=== PATIENT | male | born 1940 | race Hispanic/Latino ===

== ENCOUNTER → 2017-05-04 | Outpatient (CLI) | payer OTHER ==
[~2017-05-04] MED LIST: AEC81 PO; ATOR10 PO; CARV12.511 PO; DONE5TAB26 PO; FLUT15.88 NS; FURO40TA7 PO; HUM10VIA SQ; LEVO500T2 PO; LOSARTAN 25MG PO; METF10004 PO; MULT-1192 PO; OMEP20CA10 PO
== END | disposition home or self-care (01) ==
LOC: SHCH 14:12
PROVIDERS: ATTEND Internal Medicine Cardiovascular Disease
DX: I35.0 Nonrheumatic aortic (valve) stenosis (principal)
CPT/HCPCS: 93306

== ENCOUNTER 2018-01-26 13:27 | Emergency (ER) | payer OTHER ==
[~2018-01-26 13:27] MED LIST changes: -FURO40TA7 PO; -LOSARTAN 25MG PO; +METF-446 PO; -METF10004 PO; -OMEP20CA10 PO
[2018-01-26] MEDS ORDERED: SODIUM CHLORIDE 0.9% 500ML 500 ML IV ONE (14:21)
[2018-01-26 14:26] LABS: BASOPHILS % (AUTO) 0.9 % (0.0-5.0); HEMATOCRIT 35.7 % (42-54); LYMPHOCYTES % (AUTO) 19.5 % (21.0-51.0); MEAN CORPUSCULAR HEMOGLOBIN 29.4 pg (27.0-33.0); MEAN CORPUSCULAR HGB CONC 34.3 g/dL (32.0-36.0); MEAN CORPUSCULAR VOLUME 85.9 fL (79-99); MONOCYTES % (AUTO) 5.8 % (3.0-13.0); NEUTROPHILS % (AUTO) 68.8 % (40.0-77.0); PLATELET COUNT (AUTO) 325 K/uL (130-400); RED BLOOD CELL COUNT(AUTO) 4.16 MIL/uL (4.50-6.20); RED CELL DISTRIBUTION WIDTH 14.7 % (11.0-15.5); WHITE BLOOD COUNT (AUTO) 9.5 K/uL (4.8-10.8)
[2018-01-26 14:33] LABS: APPEARANCE,URINE Cloudy (CLEAR); BILIRUBIN,URINE Negative (NEGATIVE); GLUCOSE, URINE (UA) 250 mg/dL (NEGATIVE); KETONES,URINE Negative (NEGATIVE); LEUKOCYTE ESTERASE ,URINE Moderate (NEGATIVE); NITRATE,URINE Negative (NEGATIVE); OCCULT BLOOD,URINE Large (NEGATIVE); PROTEIN,URINE POS 1+ (NEGATIVE)
[2018-01-26 14:36] LABS: COLOR,URINE Amber (YELLOW)
[2018-01-26 14:41] LABS: BACTERIA,URINE Moderate /HPF (None Seen); MUCUS,URINE Moderate LPF (None Seen); RBC,URINE TNTC /HPF (0-1); WBC,URINE 26-50 /HPF (0-1); YEAST,URINE BUDDING Moderate /HPF (None Seen)
[2018-01-26 14:42] LABS: CREATININE 0.7 mg/dL (0.5-1.5)
[2018-01-26 14:43] LABS: POTASSIUM 5.1 mmol/L (3.5-5.1)
[2018-01-26] MEDS ORDERED: LEVOFLOXACIN 750 MG/D5W 150 ML 150 ML ONE (14:46)
[2018-01-26] MEDS ORDERED: FLUCONAZOLE 100 MG TAB ONE (15:18)
== END 2018-01-26 16:47 | disposition home or self-care (01) ==
LOC: EDH 13:27
DX: N39.0 Urinary tract infection, site not specified (principal); R31.9 Hematuria, unspecified; I11.0 Hypertensive heart disease with heart failure; I50.9 Heart failure, unspecified; E78.5 Hyperlipidemia, unspecified; Z95.1 Presence of aortocoronary bypass graft; E11.9 Type 2 diabetes mellitus without complications
CPT/HCPCS: 36415; 80048; 81001; 85025; 87088; 96365; 96366; 99285; J1956; J7040

== ENCOUNTER 2019-07-27 12:44 | Emergency (ER) | payer OTHER ==
[~2019-07-27 12:44] MED LIST changes: +FLUT15.845 NS; -FLUT15.88 NS
[2019-07-27 13:49] LABS: BASOPHILS % (AUTO) 0.7 % (0.0-5.0); EOSINOPHILS % (AUTO) 4.7 % (0.0-8.0); HEMATOCRIT 39.2 % (42-54); LYMPHOCYTES % (AUTO) 15.5 % (21.0-51.0); MEAN CORPUSCULAR HEMOGLOBIN 28.1 pg (27.0-33.0); MEAN CORPUSCULAR HGB CONC 33.4 g/dL (32.0-36.0); MEAN CORPUSCULAR VOLUME 84.1 fL (79-99); NEUTROPHILS % (AUTO) 69.7 % (40.0-77.0); PLATELET COUNT (AUTO) 322 K/uL (130-400); RED BLOOD CELL COUNT(AUTO) 4.66 MIL/uL (4.50-6.20); RED CELL DISTRIBUTION WIDTH 13.9 % (11.0-15.5); WHITE BLOOD COUNT (AUTO) 10.4 K/uL (4.8-10.8)
[2019-07-27 13:55] LABS: APPEARANCE,URINE TURBID (CLEAR); BILIRUBIN,URINE NEGATIVE (NEGATIVE); COLOR,URINE YELLOW (YELLOW); GLUCOSE, URINE (UA) 100 mg/dL (NEGATIVE); KETONES,URINE NEGATIVE (NEGATIVE); LEUKOCYTE ESTERASE ,URINE LARGE (NEGATIVE); NITRATE,URINE NEGATIVE (NEGATIVE); OCCULT BLOOD,URINE LARGE (NEGATIVE); PH,URINE 5.5 (5.0-8.0); PROTEIN,URINE 100 mg/dL (NEGATIVE); UROBILINOGEN,URINE 0.2 mg/dL (0.2-1.0)
[2019-07-27 14:07] LABS: WBC,URINE TNTC /HPF (0-1)
[2019-07-27 14:08] LABS: BACTERIA,URINE Few /HPF (None Seen); SQUAMOUS EPITHELIAL CELL,UR Few /HPF (0-2); YEAST,URINE BUDDING Few /HPF (None Seen)
[2019-07-27 14:21] LABS: CREATININE 1.1 mg/dL (0.5-1.5); POTASSIUM 3.8 mmol/L (3.5-5.1)
[2019-07-27 14:28] LABS: ALBUMIN 3.4 g/dL (3.5-5.0); BILIRUBIN,TOTAL 0.5 mg/dL (0.2-1.0); TOTAL PROTEIN, SERUM 7.1 g/dL (6.0-8.3)
[2019-07-27] MEDS ORDERED: CEFTRIAXONE SODIUM 1 GM ONE (16:18)
[2019-07-27] MEDS ORDERED: SODIUM CHLORIDE 0.9% 100 ML IV ONE (16:19)
== END 2019-07-27 17:28 | disposition home or self-care (01) ==
LOC: EDH 12:44
DX: N30.01 Acute cystitis with hematuria (principal); I11.0 Hypertensive heart disease with heart failure; I50.9 Heart failure, unspecified; E11.9 Type 2 diabetes mellitus without complications; Z72.0 Tobacco use; Z79.899 Other long term (current) drug therapy
CPT/HCPCS: 36415; 71045; 80053; 81001; 83605; 85025; 87077; 87088; 87186; 96374; 99284; J0696

== ENCOUNTER 2019-09-12 06:51 | Day surgery (SDC) | payer OTHER ==
[2019-09-05 13:46] LABS: BASOPHILS % (AUTO) 0.8 % (0.0-5.0); HEMATOCRIT 40.9 % (42-54); MEAN CORPUSCULAR HEMOGLOBIN 27.5 pg (27.0-33.0); MEAN CORPUSCULAR HGB CONC 32.5 g/dL (32.0-36.0); MEAN CORPUSCULAR VOLUME 84.5 fL (79-99); MONOCYTES % (AUTO) 6.7 % (3.0-13.0); NEUTROPHILS % (AUTO) 72.1 % (40.0-77.0); PLATELET COUNT (AUTO) 355 K/uL (130-400); RED BLOOD CELL COUNT(AUTO) 4.84 MIL/uL (4.50-6.20); RED CELL DISTRIBUTION WIDTH 14.5 % (11.0-15.5); WHITE BLOOD COUNT (AUTO) 10.5 K/uL (4.8-10.8)
[2019-09-05 13:55] LABS: APPEARANCE,URINE SL CLOUDY (CLEAR); BILIRUBIN,URINE NEGATIVE (NEGATIVE); COLOR,URINE YELLOW (YELLOW); GLUCOSE, URINE (UA) 500 mg/dL (NEGATIVE); KETONES,URINE NEGATIVE (NEGATIVE); LEUKOCYTE ESTERASE ,URINE MODERATE (NEGATIVE); NITRATE,URINE NEGATIVE (NEGATIVE); OCCULT BLOOD,URINE SMALL (NEGATIVE); PH,URINE 5.5 (5.0-8.0); PROTEIN,URINE TRACE mg/dL (NEGATIVE); UROBILINOGEN,URINE 0.2 mg/dL (0.2-1.0)
[2019-09-05 13:56] LABS: CREATININE 1.1 mg/dL (0.5-1.5); POTASSIUM 4.4 mmol/L (3.5-5.1)
[2019-09-05 13:59] LABS: INR 0.99 (0.85-1.15); PARTIAL THROMBOPLASTIN TIME 27.5 SEC (26.3-35.5); PROTHROMBIN TIME 10.7 SEC (9.6-11.6)
[2019-09-05 14:06] LABS: BACTERIA,URINE Few /HPF (None Seen); WBC,URINE TNTC /HPF (0-1); YEAST,URINE BUDDING Many /HPF (None Seen)
[2019-09-11 09:26] VITALS: BP 137/82
--- NOTE | 2019-09-11 10:12 | NUR ---
RE: ABNORMAL EKG REPORTED ABNORMAL EKG TO DR DURANT. PATIENT HAS HISTORY OF AFIB, SEE H&P IN CHART. NO NEW ORDERS, MAY PROCEED WITH SURGERY.
[~2019-09-12] VITALS: Ht 162.6 cm; Wt 92.2 kg
[2019-09-12] VITALS (16 sets, daily range): BP systolic 96–140; BP diastolic 51–84
[~2019-09-12 06:51] MED LIST changes: +LEVOFLOXACIN 500 MG/D5W 100 ML 100 ML IV SCH
[2019-09-12] MEDS ORDERED: SUCCINYLCHOLINE 200MG/10ML SYR ONE (07:48)
[2019-09-12] MEDS ORDERED: FENTANYL CITRATE PF 50 MCG/1 ML 2ML VIAL ONE (07:48)
[2019-09-12] MEDS ORDERED: PROPOFOL 10 MG/ML 20ML VIAL IV ONE (07:48)
[2019-09-12] MEDS ORDERED: LIDOCAINE PF 2% 5ML ABBOJECT ONE (07:48)
[2019-09-12] MEDS ORDERED: SODIUM CHLORIDE 0.9% 1000ML 1,000 ML IV ONE ×2 (08:03→08:21)
[2019-09-12] MEDS ORDERED: CARV12.511 PO (08:16)
[2019-09-12] MEDS ORDERED: TAMS-1 PO (08:16)
[2019-09-12] MEDS ORDERED: LORA10TA7 PO (08:16)
[2019-09-12] MEDS ORDERED: INS7030 SQ (08:16)
[2019-09-12] MEDS ORDERED: CARV6.25 PO (08:16)
[2019-09-12] MEDS ORDERED: NITR100C PO (08:16)
[2019-09-12] MEDS ORDERED: FURO20TA4 PO (08:16)
[2019-09-12] MEDS ORDERED: ATOR40TA71 PO (08:17)
[2019-09-12] MEDS ORDERED: LOSA25TA41 PO (08:17)
[2019-09-12] MEDS ORDERED: FINA5TAB41 PO (08:17)
[2019-09-12] MEDS ORDERED: SERT25TA5 PO (08:17)
[2019-09-12] MEDS ORDERED: CLOP75TA14 PO (08:17)
[2019-09-12] MEDS ORDERED: OMEP20CA12 PO (08:17)
[2019-09-12] MEDS ORDERED: FLUCONAZOLE 200 MG/NS 100 ML 100 ML IV SCH (08:45)
--- NOTE | 2019-09-12 08:45 | NUR ---
NOTIFIED MD OF PATIENT FAMILY REPORTING THAT PATIENT HAD A FALL ON Monday09/08/19 AND THAT PATIENT HAS BEEN ON PLAVIX, FAMILY REPORTS NO UNSUAL BEHAVIOR SINCE FALL AND STATED SHE DID NOT CALL PRIMARY WHEN ASKED. LAST DAY OF PLAVIX WAS 09/11/19 AT 1000AM, MD AWARE.
[2019-09-12] MEDS ORDERED: ROCURONIUM 10MG/1ML SYR 10 MG/ML ML ONE (08:59)
--- NOTE | 2019-09-12 09:00 | NUR ---
ANTIBIOTICS TAKEN WITH PATIENT TO OR
[2019-09-12] MEDS ORDERED: SODIUM CHLORIDE 0.9% 10 ML VIAL ONE (09:05)
[2019-09-12] MEDS ORDERED: PHENYLEPHRINE HCL 10 MG/ML 1ML VIAL IV ONE ×2 (09:05→09:11)
[2019-09-12] MEDS ORDERED: EPHEDRINE SULFATE 50 MG/ML AMPULE ONE (09:06)
[2019-09-12] MEDS ORDERED: NEOSTIGMINE 5MG/5ML SYR IV ONE (09:53)
[2019-09-12] MEDS ORDERED: GLYCOPYRROLATE 1 MG/5 ML SYRINGE ONE (09:53)
== END 2019-09-12 12:00 | disposition home or self-care (01) ==
LOC: DAH 06:51
PROVIDERS: ATTEND Urology
DX: N40.1 Benign prostatic hyperplasia with lower urinary tract symptoms (principal); Z11.59 Encounter for screening for other viral diseases; I25.10 Atherosclerotic heart disease of native coronary artery without angina pectoris; E11.9 Type 2 diabetes mellitus without complications; I11.0 Hypertensive heart disease with heart failure; I50.9 Heart failure, unspecified; Z79.4 Long term (current) use of insulin; Z79.899 Other long term (current) drug therapy; Z98.890 Other specified postprocedural states; Z90.49 Acquired absence of other specified parts of digestive tract; Z85.840 Personal history of malignant neoplasm of eye; Z98.49 Cataract extraction status, unspecified eye; Z79.82 Long term (current) use of aspirin; Z87.891 Personal history of nicotine dependence; Z82.49 Family history of ischemic heart disease and other diseases of the circulatory system; Z83.3 Family history of diabetes mellitus
CPT/HCPCS: 36415; 52648; 71045; 80048; 81001; 82948 ×2; 85025; 85610; 85730; 87088; 93005; A4213; A4215; A4221; A4222; A4223; A4354; A4600; A4663; A6260; C1758; J0330; J1450; J2001; J2370; J2704; J2710; J3010; J3490 ×2; J7030 ×3; U0003; J1956

== ENCOUNTER 2019-10-02 15:47 | Inpatient (IN) | payer OTHER ==
[~2019-10-02] VITALS: Ht 162.6 cm; Wt 88.6 kg
[~2019-10-02 15:47] MED LIST changes: -ATOR10 PO; +ATOR40TA71 PO; +CARV6.25 PO; +CLOP75TA14 PO; +FINA5TAB41 PO; -FLUT15.845 NS; +FURO20TA4 PO; -HUM10VIA SQ; +INS7030 SQ; -LEVO500T2 PO; -LEVOFLOXACIN 500 MG/D5W 100 ML 100 ML IV SCH; +LORA10TA7 PO; +LOSA25TA41 PO; -MULT-1192 PO; +NITR100C PO; +OMEP20CA12 PO; +SERT25TA5 PO; +TAMS-1 PO
[2019-10-02 16:43] LABS: BASOPHILS % (AUTO) 0.4 % (0.0-5.0); EOSINOPHILS % (AUTO) 1.7 % (0.0-8.0); LYMPHOCYTES % (AUTO) 9.8 % (21.0-51.0); MEAN CORPUSCULAR HEMOGLOBIN 27.2 pg (27.0-33.0); MEAN CORPUSCULAR HGB CONC 33.3 g/dL (32.0-36.0); MEAN CORPUSCULAR VOLUME 81.6 fL (79-99); MONOCYTES % (AUTO) 5.6 % (3.0-13.0); NEUTROPHILS % (AUTO) 81.8 % (40.0-77.0); PLATELET COUNT (AUTO) 454 K/uL (130-400); RED BLOOD CELL COUNT(AUTO) 3.31 MIL/uL (4.50-6.20); RED CELL DISTRIBUTION WIDTH 14.6 % (11.0-15.5); WHITE BLOOD COUNT (AUTO) 10.1 K/uL (4.8-10.8)
[2019-10-02 16:54] LABS: CREATININE 1.4 mg/dL (0.5-1.5); POTASSIUM 4.9 mmol/L (3.5-5.1)
[2019-10-02 16:58] LABS: ALBUMIN 3.1 g/dL (3.5-5.0); BILIRUBIN,TOTAL 0.2 mg/dL (0.2-1.0); INR 0.99 (0.85-1.15); PARTIAL THROMBOPLASTIN TIME 27.4 SEC (26.3-35.5); PROTHROMBIN TIME 10.7 SEC (9.6-11.6); TOTAL PROTEIN, SERUM 6.9 g/dL (6.0-8.3)
[2019-10-02 17:19] LABS: APPEARANCE,URINE TURBID (CLEAR); BILIRUBIN,URINE LARGE (NEGATIVE); COLOR,URINE RED (YELLOW); GLUCOSE, URINE (UA) 100 mg/dL (NEGATIVE); KETONES,URINE 15 mg/dL (NEGATIVE); LEUKOCYTE ESTERASE ,URINE LARGE (NEGATIVE); NITRATE,URINE POSITIVE (NEGATIVE); OCCULT BLOOD,URINE LARGE (NEGATIVE); PROTEIN,URINE >=300 mg/dL (NEGATIVE); UROBILINOGEN,URINE >=8.0 mg/dL (0.2-1.0)
[2019-10-02] MEDS ORDERED: SODIUM CHLORIDE 0.9% 1000ML 1,000 ML IV ONE ×2 (17:27→19:29)
[2019-10-02 17:29] LABS: AMPHET/METH SCREEN,URINE NEGATIVE (NEGATIVE); BARBITURATE SCREEN, URINE NEGATIVE (NEGATIVE); BENZODIAZEPINES SCREEN,URINE NEGATIVE (NEGATIVE); CANNABINOID SCREEN,URINE NEGATIVE (NEGATIVE); COCAINE SCREEN,URINE NEGATIVE (NEGATIVE); OPIATE SCREEN,URINE NEGATIVE (NEGATIVE); PHENCYCLIDINE SCREEN,URINE NEGATIVE (NEGATIVE)
[2019-10-02 17:34] LABS: RBC,URINE >100 /HPF (0-1)
[2019-10-02 17:35] LABS: BACTERIA,URINE Moderate /HPF (None Seen); RENAL EPITHELIAL CELLS,URINE Few /HPF (None Seen); SQUAMOUS EPITHELIAL CELL,UR Few /HPF (0-2)
[2019-10-02] MEDS ORDERED: LEVETIRACETAM 500 MG/5 ML SD VIAL IV ONE (18:45)
[2019-10-02] MEDS ORDERED: CEFTRIAXONE SODIUM 1 GM ONE (18:46)
[2019-10-02] MEDS ORDERED: SODIUM CHLORIDE 0.9% 50 ML IV ONE (18:46)
[2019-10-02] MEDS ORDERED: SODIUM CHLORIDE 0.9% 100 ML IV ONE (18:46)
[2019-10-02] MEDS ORDERED: GLUCAGON 1MG KIT 1 MG ML IM PRN (20:30)
[2019-10-02] MEDS ORDERED: DEXTROSE 50%-WATER 50 ML DISP.SYRIN IV PRN (20:30)
[2019-10-02] MEDS: INSULIN R PO SS1 SQ SCH (23:00)
--- NOTE | 2019-10-02 23:00 | NUR ---
ADMIT PT ADMITTED TO ROOM 307, AWAKE AND ALERT BUT IS ONLY ORIENTED TO SELF. NOTED TO HAVE SHORT AND INNERSOLE FITTER MEMORY LOSS. PT KEEPS ASKING WHY HE WAS BROUGHT TO THE HOSPITAL AND REPEATING QUESTIONS ALREADY ANSWERED BY ELECTRICIAN LOCOMOTIVE.DENIES ANY PAINS AT THIS TIME. ADMISSION CARE DONE. PLACED PT IN BED COMFORTABLY. PT HAS THREE WAY THOMAS CATHETER AND NOTED TO HAVE GROSS HEMATURIA ON THE URINE OUTPUT. PT COMPLAINTS OF WANTING TO URINATE BUT NO URINE OUTPUT. MANUALLY IRRIGATED THE F/C AND EVACUATED A LOT OF BLOOD CLOTS. IRRIGATED UNTIL OUTPUT HAS NO BLOOD CLOTS ANYMORE BUT STILL BLOODY. WILL PAGE REPRESENTATIVE GOVERNMENT RELATIONS PROP MAKER TO INFORM OF KS'S CONDITION. ORIENTED TO ROOM AND UNIT. BED ALARM ACTIVATED. CALL LIGHT WITHIN REACH. IN FOR MORE CARE AND MANAGEMENT. Addendum: 10/03/19 at 0223 by PRISCILLA RMAOS RN RN Amended: Links added.
--- NOTE | 2019-10-03 01:30 | NUR ---
CBI MANUALLY IRRIGATED F/C BUT ONLY EVACUATED SMALL BLOOD CLOTS. STARTED CBI AT A FAST RATE AND WILL TITRATE ACCORDINGLY. WILL MONITOR CLOSELY.
[2019-10-03 01:49] VITALS: BP 97/50
[2019-10-03] MEDS ORDERED: CEFTRIAXONE SODIUM 1 GM IVP SCH ×2 (02:30→18:00)
[2019-10-03] MEDS ORDERED: MULT1CAP32 PO (02:35)
[2019-10-03] MEDS ORDERED: CEFU500T67 PO (02:35)
[2019-10-03] MEDS ORDERED: OMEG-148 PO (02:35)
[2019-10-03 03:28] VITALS: BP 101/54
[2019-10-03 05:58] LABS: HEMATOCRIT 24.9 % (42-54); MEAN CORPUSCULAR HEMOGLOBIN 27.4 pg (27.0-33.0); MEAN CORPUSCULAR HGB CONC 32.5 g/dL (32.0-36.0); MEAN CORPUSCULAR VOLUME 84.1 fL (79-99); RED BLOOD CELL COUNT(AUTO) 2.96 MIL/uL (4.50-6.20); RED CELL DISTRIBUTION WIDTH 15.2 % (11.0-15.5); WHITE BLOOD COUNT (AUTO) 7.4 K/uL (4.8-10.8)
--- NOTE | 2019-10-03 06:15 | NUR ---
CBI PT RESTING COMFORTABLY. NO COMPLAINTS VERBALIZED. STILL AT A FAST RATE TITRATION FOR CBI. FOR MORE CARE.
[2019-10-03 06:16] LABS: POTASSIUM 4.9 mmol/L (3.5-5.1)
[2019-10-03] MEDS: INSULIN R PO SS1 SQ SCH ×4 (06:17→21:00)
[2019-10-03 07:51] VITALS: BP 111/65
[2019-10-03] MEDS ORDERED: LEVETIRACETAM 500 MG in SODIUM CHLORIDE 0.9% 100 ML IV SCH (10:30)
[2019-10-03] MEDS: METFORMIN HCL 500 MG TABLET PO SCH ×2 (10:50→17:19)
[2019-10-03] MEDS: NITROFURANTOIN MONOHYD/M-CRYST 100 MG CAPSULE PO SCH ×2 (10:51→21:44)
[2019-10-03] MEDS: CARVEDILOL 12.5 MG TABLET PO SCH (10:51)
[2019-10-03] MEDS: LOSARTAN 50 MG TABLET PO SCH (10:51)
[2019-10-03] MEDS: FISH OIL 1000 MG/CAP PO SCH (10:56)
[2019-10-03] MEDS: MULTIVITAMIN TABLET PO SCH (10:56)
[2019-10-03] MEDS: FUROSEMIDE 20 MG TABLET PO SCH (10:56)
[2019-10-03] MEDS: SERTRALINE HCL 50 MG TABLET PO SCH (10:57)
[2019-10-03] MEDS: PANTOPRAZOLE SODIUM 40 MG TABLET.DR PO SCH (10:57)
[2019-10-03] MEDS: LORATADINE 10 MG TABLET PO SCH (10:57)
[2019-10-03] MEDS: FINASTERIDE 5 MG TABLET PO SCH (11:00)
[2019-10-03 11:28] VITALS: BP 146/89
[2019-10-03] MEDS ORDERED: DEXTROSE 50%-WATER 50 ML DISP.SYRIN IV PRN (12:00)
[2019-10-03] MEDS ORDERED: POTASSIUM CHLORIDE 20MEQ/100ML 100 ML IV PRN (12:00)
[2019-10-03] MEDS ORDERED: POTASSIUM CHLORIDE 10% ELIXIR 20 MEQ/15 ML UDCUP PO PRN (12:00)
[2019-10-03] MEDS ORDERED: LIDOCAINE HCL-MPF 1% 2ML VIAL IV PRN (12:00)
[2019-10-03] MEDS ORDERED: GLUCAGON 1MG KIT 1 MG ML IM PRN (12:00)
[2019-10-03] MEDS ORDERED: POTASSIUM CHLORIDE 20 MEQ ERTAB PO PRN (12:00)
[2019-10-03] MEDS ORDERED: COMPOUND IV MISC 1 EACH IVSOLN MISC PRN (12:15)
--- NOTE | 2019-10-03 12:32 | NUR ---
DCP CM spoke to pt's daughter (LOWELL) April Crowley, discussed dc plans. Pt is assist with ADL's wheelchair bound, lives at home with spouse and another daughter. Pt has a wheelchair, shower chair. Daughter verbalized there's a nurse that comes once a month from [facility]. As per daughter pt just had a recent procedure w/Dr Mccoy last admission on September 11, was sent home w/Medrano Catheter due to urinary retention and blood clots in urine, f/c was changed Monday and started on CBI. Pt has hx of fall as per daughter. Feels safe to go back home, daughter able to assist with transportation and needs as necessary. Offered possible short term placement if MD recommends, as per daughter prefers to take pt back home for now due to covid pandemic, but willing to consider if necessary, wants to decide when MD recommends. DC plan to home vs SNF. CM to cont to follow up. Addendum: 10/03/19 at 1240 by AUGUSTINA CALDERÓN LVN CM Amended: Links added.
--- NOTE | 2019-10-03 12:44 | NUR ---
CHART CHECK COMPLETED. Pt IS AN 79 Y.O. MALE ADMITTED SECONDARY TO NEW ONSET SEIZURES. Pt HAS A PAST MEDICAL HISTORY SIGNIFICANT FOR BPH S/P PROSTATECTOMY, HEMATURIA, RECURRENT UTIs, DMII, CAD, CABG, HLD, HTN, ALZHEIMER'S, AND AORTIC STENOSIS. Pt CURRENTLY NPO DUE TO PENDING EXAMS. PORTFOLIO MANAGER SPOKE TO NURSE JESSIE. PER DAUGHTER, Pt WAS EATING WELL AND ON A REGULAR TEXTURE, THIN LIQUID DIET IN THE HOME WITH NO ISSUES. A FORMAL SPEECH/SWALLOW EVALUATION IS RECOMMENDED IF Pt PRESENTS WITH +S/S OF ASPIRATION SUCH COUGH RESPONSE, THROAT CLEAR OR WET VOCAL QUALITY DURING MEALTIMES. Addendum: 10/03/19 at 1250 by GINO CALHOUN [facility] Amended: Links added.
[2019-10-03 16:00] VITALS: BP 118/86
--- NOTE | 2019-10-03 16:43 | NUR ---
1600 PATIENT SIGNED IM LETTER, I FAXED IM LETTER TO 1075 AND PLACED IN CHART UNDER CONSENT TAB.
[2019-10-03] MEDS: INSULIN HUMULIN R 100 UNIT/ML 3ML SQ SCH ×2 (17:19→21:00)
--- NOTE | 2019-10-03 18:50 | NUR ---
Notified Dr. Mccoy of consult for gross hematuria. Per Dr. 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 May discontinue CBI if blood clots are removed.
[2019-10-03 20:01] VITALS: BP 102/52
[2019-10-03 21:07] LABS: HEMATOCRIT 26.4 % (42-54); MEAN CORPUSCULAR HEMOGLOBIN 27.5 pg (27.0-33.0); MEAN CORPUSCULAR HGB CONC 32.2 g/dL (32.0-36.0); MEAN CORPUSCULAR VOLUME 85.4 fL (79-99); PLATELET COUNT (AUTO) 428 K/uL (130-400); RED BLOOD CELL COUNT(AUTO) 3.09 MIL/uL (4.50-6.20); RED CELL DISTRIBUTION WIDTH 15.4 % (11.0-15.5); WHITE BLOOD COUNT (AUTO) 10.9 K/uL (4.8-10.8)
[2019-10-03 21:41] LABS: EOSINOPHILS % (MANUAL) 3 % (1-6); LYMPHOCYTES % (MANUAL) 13 % (22-44); MAN.DIFF COMMENT-IMPRESSION MANUAL DIFFERENTIAL; MONOCYTES % (MANUAL) 3 % (2-9); PLATELET MORPHOLOGY COMMENT ADEQUATE; SEGMENTED NEUTROPHILS % 81 % (40-70)
[2019-10-03] MEDS: CARVEDILOL 6.25 MG TABLET PO SCH (21:43)
[2019-10-03] MEDS: ATORVASTATIN CALCIUM 40 MG TABLET PO SCH (21:43)
[2019-10-03] MEDS: LEVETIRACETAM 500 MG TABLET PO SCH (21:44)
[2019-10-03] MEDS: TAMSULOSIN HCL 0.4 MG CAP.ER.24H PO SCH (21:44)
[2019-10-04] VITALS (7 sets, daily range): BP systolic 105–129; BP diastolic 50–69
[2019-10-04 06:04] LABS: HEMATOCRIT 26.9 % (42-54); MEAN CORPUSCULAR HEMOGLOBIN 26.9 pg (27.0-33.0); MEAN CORPUSCULAR HGB CONC 32.3 g/dL (32.0-36.0); MEAN CORPUSCULAR VOLUME 83.3 fL (79-99); RED BLOOD CELL COUNT(AUTO) 3.23 MIL/uL (4.50-6.20); RED CELL DISTRIBUTION WIDTH 15.2 % (11.0-15.5); WHITE BLOOD COUNT (AUTO) 10.3 K/uL (4.8-10.8)
[2019-10-04 06:18] LABS: MAGNESIUM 1.7 mg/dL (1.80-2.40); PHOSPHORUS 3.1 mg/dL (2.5-4.9); POTASSIUM 4.5 mmol/L (3.5-5.1)
[2019-10-04] MEDS: INSULIN HUMULIN R 100 UNIT/ML 3ML SQ SCH ×4 (06:19→21:00)
[2019-10-04] MEDS: INSULIN R PO SS1 SQ SCH ×4 (06:19→21:00)
[2019-10-04] MEDS: NITROFURANTOIN MONOHYD/M-CRYST 100 MG CAPSULE PO SCH (09:07)
[2019-10-04] MEDS: LOSARTAN 50 MG TABLET PO SCH (09:07)
[2019-10-04] MEDS: FISH OIL 1000 MG/CAP PO SCH (09:07)
[2019-10-04] MEDS: METFORMIN HCL 500 MG TABLET PO SCH ×2 (09:07→17:19)
[2019-10-04] MEDS: PANTOPRAZOLE SODIUM 40 MG TABLET.DR PO SCH (09:07)
[2019-10-04] MEDS: MULTIVITAMIN TABLET PO SCH (09:08)
[2019-10-04] MEDS: LEVETIRACETAM 500 MG TABLET PO SCH ×2 (09:08→21:19)
[2019-10-04] MEDS: FUROSEMIDE 20 MG TABLET PO SCH (09:08)
[2019-10-04] MEDS: SERTRALINE HCL 50 MG TABLET PO SCH (09:08)
[2019-10-04] MEDS: CARVEDILOL 12.5 MG TABLET PO SCH (09:09)
[2019-10-04] MEDS: LORATADINE 10 MG TABLET PO SCH (09:10)
[2019-10-04] MEDS: FINASTERIDE 5 MG TABLET PO SCH (09:14)
[2019-10-04] MEDS: CARVEDILOL 6.25 MG TABLET PO SCH (21:19)
[2019-10-04] MEDS: TAMSULOSIN HCL 0.4 MG CAP.ER.24H PO SCH (21:19)
[2019-10-04] MEDS: ATORVASTATIN CALCIUM 40 MG TABLET PO SCH (21:19)
[2019-10-05 04:00] VITALS: BP 115/51
[2019-10-05 05:08] LABS: ALBUMIN 2.8 g/dL (3.5-5.0); BILIRUBIN,TOTAL 0.4 mg/dL (0.2-1.0); CREATININE 1.1 mg/dL (0.5-1.5); POTASSIUM 4.7 mmol/L (3.5-5.1); TOTAL PROTEIN, SERUM 6.5 g/dL (6.0-8.3)
[2019-10-05] MEDS: INSULIN HUMULIN R 100 UNIT/ML 3ML SQ SCH ×4 (06:39→20:35)
[2019-10-05] MEDS: INSULIN R PO SS1 SQ SCH (06:39)
--- NOTE | 2019-10-05 07:49 | NUR ---
PATIENT UPDATE No seizure activity overnight, pt slept better than the night before. Minimal amount of blood clots noted in the catheter. No big clots like yesterdays that blocks the catheter, no need to irrigate the catheter. Urine more clear yellow. No complaints voiced out.
[2019-10-05] MEDS: PANTOPRAZOLE SODIUM 40 MG TABLET.DR PO SCH (08:28)
[2019-10-05] MEDS: FINASTERIDE 5 MG TABLET PO SCH (08:29)
[2019-10-05] MEDS: METFORMIN HCL 500 MG TABLET PO SCH ×2 (08:29→17:09)
[2019-10-05] MEDS: SERTRALINE HCL 50 MG TABLET PO SCH (08:29)
[2019-10-05] MEDS: FISH OIL 1000 MG/CAP PO SCH (08:29)
[2019-10-05] MEDS: LEVETIRACETAM 500 MG TABLET PO SCH ×2 (08:29→20:35)
[2019-10-05] MEDS: LOSARTAN 50 MG TABLET PO SCH (08:30)
[2019-10-05] MEDS: LORATADINE 10 MG TABLET PO SCH (08:30)
[2019-10-05] MEDS: CARVEDILOL 12.5 MG TABLET PO SCH (08:31)
[2019-10-05] MEDS: FUROSEMIDE 20 MG TABLET PO SCH (08:31)
[2019-10-05] MEDS: MULTIVITAMIN TABLET PO SCH (08:31)
[2019-10-05 08:48] VITALS: BP 94/47
[2019-10-05 11:52] VITALS: BP 95/51
[2019-10-05 17:02] VITALS: BP 109/62
[2019-10-05 19:53] VITALS: BP 100/56
[2019-10-05 20:34] VITALS: BP 102/64
[2019-10-05] MEDS: CARVEDILOL 6.25 MG TABLET PO SCH (20:35)
[2019-10-05] MEDS: TAMSULOSIN HCL 0.4 MG CAP.ER.24H PO SCH (20:35)
[2019-10-05] MEDS: ATORVASTATIN CALCIUM 40 MG TABLET PO SCH (20:35)
[2019-10-06 00:10] VITALS: BP 110/68
[2019-10-06 04:00] VITALS: BP 113/51
[2019-10-06] MEDS: INSULIN HUMULIN R 100 UNIT/ML 3ML SQ SCH ×4 (06:25→20:48)
[2019-10-06 08:00] VITALS: BP 112/64
[2019-10-06] MEDS: METFORMIN HCL 500 MG TABLET PO SCH ×2 (08:00→09:45)
[2019-10-06] MEDS: CARVEDILOL 12.5 MG TABLET PO SCH (09:37)
[2019-10-06] MEDS: LOSARTAN 50 MG TABLET PO SCH (09:38)
[2019-10-06] MEDS: MULTIVITAMIN TABLET PO SCH (09:38)
[2019-10-06] MEDS: FUROSEMIDE 20 MG TABLET PO SCH (09:38)
[2019-10-06] MEDS: FINASTERIDE 5 MG TABLET PO SCH (09:38)
[2019-10-06] MEDS: FISH OIL 1000 MG/CAP PO SCH (09:38)
[2019-10-06] MEDS: LORATADINE 10 MG TABLET PO SCH (09:39)
[2019-10-06] MEDS: LEVETIRACETAM 500 MG TABLET PO SCH ×2 (09:39→21:00)
[2019-10-06] MEDS: PANTOPRAZOLE SODIUM 40 MG TABLET.DR PO SCH (09:39)
[2019-10-06] MEDS: SERTRALINE HCL 50 MG TABLET PO SCH (09:40)
[2019-10-06 11:30] VITALS: BP 97/64
[2019-10-06 16:00] VITALS: BP 106/57
--- NOTE | 2019-10-06 17:51 | NUR ---
DCP UPDATE: Was able to react pt''s Dtr April Stephens. Discussed w her Md order/recommendation for SNF @ DC. Family in agreement w recommendation. AYSE/PC consent obtained for [facility]. HERNANDEZ to continue to follow. referral pending to be sent.
--- NOTE | 2019-10-06 19:20 | NUR ---
REPORT GIVEN TO LEIGH LYNNE. PT STABLE NO DISTRESS, NO C/O PAIN IN GENERAL. PT RESTING IN BED WATCH TV. BED RAIL UP X3 CALL LIGHT IN REACH. CM WILL CONTACT DAUGHTER REGARDING D/C TO ASSISTED.
[2019-10-06 19:48] VITALS: BP 102/60
[2019-10-06] MEDS: CARVEDILOL 6.25 MG TABLET PO SCH (21:00)
[2019-10-06] MEDS: ATORVASTATIN CALCIUM 40 MG TABLET PO SCH (21:00)
[2019-10-06] MEDS: TAMSULOSIN HCL 0.4 MG CAP.ER.24H PO SCH (21:00)
[2019-10-07 00:14] VITALS: BP 119/72
[2019-10-07 03:48] VITALS: BP 98/56
--- NOTE | 2019-10-07 04:55 | NUR ---
PATIENT UPDATE No seizure episodes overnight, continues on seizure precaution. Continues to have some blood clots in the sandhu catheter, small blood clots noted, no problems with big blood clots that used to block the flow of urine in the catheter. Pt pending discharge to a retirement with rehab but insists that he'd rather be discharged to home. No complaints of any discomfort.
[2019-10-07] MEDS: INSULIN HUMULIN R 100 UNIT/ML 3ML SQ SCH ×4 (05:54→20:18)
[2019-10-07] MEDS: METFORMIN HCL 500 MG TABLET PO SCH ×2 (08:00→17:29)
[2019-10-07 08:24] VITALS: BP 109/60
[2019-10-07] MEDS: CARVEDILOL 12.5 MG TABLET PO SCH (10:24)
[2019-10-07] MEDS: LOSARTAN 50 MG TABLET PO SCH (10:28)
[2019-10-07] MEDS: FUROSEMIDE 20 MG TABLET PO SCH (10:29)
[2019-10-07] MEDS: LEVETIRACETAM 500 MG TABLET PO SCH ×2 (10:29→20:18)
[2019-10-07] MEDS: FISH OIL 1000 MG/CAP PO SCH (10:29)
[2019-10-07] MEDS: LORATADINE 10 MG TABLET PO SCH (10:30)
[2019-10-07] MEDS: FINASTERIDE 5 MG TABLET PO SCH (10:30)
[2019-10-07] MEDS: MULTIVITAMIN TABLET PO SCH (10:30)
[2019-10-07] MEDS: PANTOPRAZOLE SODIUM 40 MG TABLET.DR PO SCH (10:30)
[2019-10-07] MEDS: SERTRALINE HCL 50 MG TABLET PO SCH (10:31)
--- NOTE | 2019-10-07 11:00 | NUR ---
bladder training sandhu clamped
[2019-10-07 12:00] VITALS: BP 115/62
--- NOTE | 2019-10-07 12:57 | NUR ---
bladder training sandhu unclamped
--- NOTE | 2019-10-07 12:57 | NUR ---
CM Note: [facility] pending approval Faxed order, clinicals, PT, PASRR, Covid Transfer Form to [facility], confirmation received. Spoke to Cheri will await clinicals, aware pending covid test today for placement, will send result once available. Pt pending approval. EMS arranged and faxed for today in case pt receive approval, primary nurse to call [facility] once pt ready to DC. Primary nurse aware. CM to cont to follow up.
--- NOTE | 2019-10-07 15:00 | NUR ---
bladder training sandhu clamped
[2019-10-07 16:00] VITALS: BP 97/59
--- NOTE | 2019-10-07 16:46 | NUR ---
bladder training sandhu unclamped
[2019-10-07 19:30] VITALS: BP 102/58
[2019-10-07] MEDS: ATORVASTATIN CALCIUM 40 MG TABLET PO SCH (20:18)
[2019-10-07] MEDS: TAMSULOSIN HCL 0.4 MG CAP.ER.24H PO SCH (20:18)
--- NOTE | 2019-10-07 20:20 | NUR ---
MEDS SHIFT ASSESSMENT DONE, PLEASE REFER TO CHART. DUE MEDS ADMINISTERED, TOLERATED WELL. KEPT RESTED AND COMFORTABLE. WILL MONITOR CLOSELY. CALL LIGHT WITHIN REACH. Addendum: 10/08/19 at 0118 by PRISCILLA RAMOS RN RN Amended: Links added.
[2019-10-07] MEDS: CARVEDILOL 6.25 MG TABLET PO SCH (20:25)
[2019-10-08] VITALS (7 sets, daily range): BP systolic 98–130; BP diastolic 46–70
--- NOTE | 2019-10-08 02:00 | NUR ---
ROUNDS PT RESTING WELL. NO DISTRESS NOTED. KEPT UNDISTURBED FOR NOW. WILL MONITOR PT. CALL LIGHT WITHIN REACH.
--- NOTE | 2019-10-08 05:58 | NUR ---
ROUNDS PT RESTING WELL, NO DISTRESS NOTED. KEPT RESTED AND COMFORTABLE. CALL LIGHT WITHIN REACH. FOR MORE CARE.
[2019-10-08] MEDS: INSULIN HUMULIN R 100 UNIT/ML 3ML SQ SCH ×4 (06:07→21:02)
[2019-10-08] MEDS: MULTIVITAMIN TABLET PO SCH (08:09)
[2019-10-08] MEDS: SERTRALINE HCL 50 MG TABLET PO SCH (08:09)
[2019-10-08] MEDS: METFORMIN HCL 500 MG TABLET PO SCH ×2 (08:10→16:43)
[2019-10-08] MEDS: LORATADINE 10 MG TABLET PO SCH (08:11)
[2019-10-08] MEDS: FINASTERIDE 5 MG TABLET PO SCH (08:11)
[2019-10-08] MEDS: LOSARTAN 50 MG TABLET PO SCH (08:11)
[2019-10-08] MEDS: PANTOPRAZOLE SODIUM 40 MG TABLET.DR PO SCH (08:11)
[2019-10-08] MEDS: FUROSEMIDE 20 MG TABLET PO SCH (08:12)
[2019-10-08] MEDS: LEVETIRACETAM 500 MG TABLET PO SCH ×2 (08:12→19:31)
[2019-10-08] MEDS: FISH OIL 1000 MG/CAP PO SCH (08:12)
[2019-10-08] MEDS: CARVEDILOL 12.5 MG TABLET PO SCH (08:12)
--- NOTE | 2019-10-08 15:51 | NUR ---
CM Note: [facility] approval CM spoke to Cheri mendez/dharmesh pt has approval. Just pending covid result at this time prior to transfer, will send info once resulted. EMS arranged and faxed for today, primary nurse to call [facility] once pt ready to DC. Primary nurse aware. CM to cont to follow up.
[2019-10-08] MEDS: ATORVASTATIN CALCIUM 40 MG TABLET PO SCH (19:31)
[2019-10-08] MEDS: TAMSULOSIN HCL 0.4 MG CAP.ER.24H PO SCH (19:31)
[2019-10-08] MEDS: CARVEDILOL 6.25 MG TABLET PO SCH (19:37)
[2019-10-09 04:14] VITALS: BP 98/49
[2019-10-09] MEDS: INSULIN HUMULIN R 100 UNIT/ML 3ML SQ SCH ×4 (06:48→20:44)
[2019-10-09] MEDS: METFORMIN HCL 500 MG TABLET PO SCH ×3 (06:48→17:12)
[2019-10-09 08:06] VITALS: BP 114/53
[2019-10-09] MEDS: SERTRALINE HCL 50 MG TABLET PO SCH (09:02)
[2019-10-09] MEDS: LEVETIRACETAM 500 MG TABLET PO SCH ×2 (09:02→20:05)
[2019-10-09] MEDS: LORATADINE 10 MG TABLET PO SCH (09:02)
[2019-10-09] MEDS: FUROSEMIDE 20 MG TABLET PO SCH (09:03)
[2019-10-09] MEDS: PANTOPRAZOLE SODIUM 40 MG TABLET.DR PO SCH (09:03)
[2019-10-09] MEDS: FINASTERIDE 5 MG TABLET PO SCH (09:03)
[2019-10-09] MEDS: FISH OIL 1000 MG/CAP PO SCH (09:03)
[2019-10-09] MEDS: MULTIVITAMIN TABLET PO SCH (09:03)
[2019-10-09] MEDS: LOSARTAN 50 MG TABLET PO SCH (09:04)
[2019-10-09] MEDS: CARVEDILOL 12.5 MG TABLET PO SCH (09:04)
[2019-10-09 11:27] VITALS: BP 126/60
--- NOTE | 2019-10-09 13:56 | NUR ---
RDSCREEN - LOS X 7 Pt admitted with new onset seizures. Pt with Hx of dementia. Tolerating 75gm CCD with no report of GI distress, Good PO at 100%. Pt BG 244. LBM 10/06/19. Obesity Class I. MVI, Metformin, Fish oil in place. Recommend modify diet to 60gm CCD Recommend 30mL ProMod QD RD to continue to monitor. Please notify RD as additional nutrition concerns arise. Thank you.
[2019-10-09 15:57] VITALS: BP 119/69
[2019-10-09] MEDS: TAMSULOSIN HCL 0.4 MG CAP.ER.24H PO SCH (20:05)
[2019-10-09] MEDS: CARVEDILOL 6.25 MG TABLET PO SCH (20:05)
[2019-10-09] MEDS: ATORVASTATIN CALCIUM 40 MG TABLET PO SCH (20:05)
[2019-10-09 20:08] VITALS: BP 125/64
[2019-10-10 00:08] VITALS: BP 103/57
[2019-10-10 04:08] VITALS: BP 109/69
[2019-10-10 04:25] LABS: ABG BASE EXCESS 0.8 mmol/L (-2.0-3.0); ABG HCO3 23.4 mmol/L (21.0-28.0); ABG OXYGEN SATURATION 97.6 % (95.0-99.0); ABG PCO2 32 mmHg (35-48)
[2019-10-10] MEDS: INSULIN HUMULIN R 100 UNIT/ML 3ML SQ SCH ×4 (05:43→20:29)
[2019-10-10] MEDS: METFORMIN HCL 500 MG TABLET PO SCH ×2 (05:44→17:36)
[2019-10-10 06:52] LABS: HEMATOCRIT 27.6 % (42-54); MEAN CORPUSCULAR HEMOGLOBIN 27.1 pg (27.0-33.0); MEAN CORPUSCULAR HGB CONC 31.9 g/dL (32.0-36.0); MEAN CORPUSCULAR VOLUME 84.9 fL (79-99); PLATELET COUNT (AUTO) 406 K/uL (130-400); RED BLOOD CELL COUNT(AUTO) 3.25 MIL/uL (4.50-6.20); RED CELL DISTRIBUTION WIDTH 14.8 % (11.0-15.5); WHITE BLOOD COUNT (AUTO) 8.4 K/uL (4.8-10.8)
[2019-10-10 07:36] LABS: BILIRUBIN,TOTAL 0.5 mg/dL (0.2-1.0); MAGNESIUM 1.3 mg/dL (1.80-2.40); POTASSIUM 4.8 mmol/L (3.5-5.1); TOTAL PROTEIN, SERUM 6.5 g/dL (6.0-8.3)
[2019-10-10 08:16] VITALS: BP 106/61
[2019-10-10 08:18] LABS: BASOPHILS % (MANUAL) 2 % (0-2); EOSINOPHILS % (MANUAL) 1 % (1-6); LYMPHOCYTES % (MANUAL) 20 % (22-44); MONOCYTES % (MANUAL) 5 % (2-9); SEGMENTED NEUTROPHILS % 72 % (40-70)
[2019-10-10 08:19] LABS: MAN.DIFF COMMENT-IMPRESSION MANUAL DIFFERENTIAL; PLATELET MORPHOLOGY COMMENT SLIGHT INCREASED
[2019-10-10] MEDS: FUROSEMIDE 20 MG TABLET PO SCH (10:01)
[2019-10-10] MEDS: FISH OIL 1000 MG/CAP PO SCH (10:01)
[2019-10-10] MEDS: SERTRALINE HCL 50 MG TABLET PO SCH (10:01)
[2019-10-10] MEDS: FINASTERIDE 5 MG TABLET PO SCH (10:01)
[2019-10-10] MEDS: CARVEDILOL 12.5 MG TABLET PO SCH (10:02)
[2019-10-10] MEDS: MULTIVITAMIN TABLET PO SCH (10:02)
[2019-10-10] MEDS: LORATADINE 10 MG TABLET PO SCH (10:03)
[2019-10-10] MEDS: LOSARTAN 50 MG TABLET PO SCH (10:03)
[2019-10-10] MEDS: LEVETIRACETAM 500 MG TABLET PO SCH ×2 (10:03→19:24)
[2019-10-10] MEDS: PANTOPRAZOLE SODIUM 40 MG TABLET.DR PO SCH (10:04)
[2019-10-10 12:03] VITALS: BP 97/58
--- NOTE | 2019-10-10 13:49 | NUR ---
CM Note: cancelled [facility], [facility] pending approval CM spoke to Cheri this morning, no longer accepting covid free patients, unable to accept at this time, will be accepting covid + patients. Cancelled referrals. Dtr agreeable to any SNF, AYSE telephone consent signed. Faxed order, clinicals, PT, PASRR, Covid Assessments to [facility], confirmation received. Spoke to Michaelle, made aware initial referral was at [facility] but facility only now accepting covid + pt, aware dcp today/once approved, pending covid recent result, will fax once available. Pt pending approval at this time. EMS arranged and faxed in case pt received approval, primary nurse to call [facility] once pt ready to DC. Primary nurse aware. CM to cont to follow up.
[2019-10-10 16:30] VITALS: BP_SYST 116; BP_SYST 91; BP_DIAS 62; BP_DIAS 72
[2019-10-10] MEDS: CARVEDILOL 6.25 MG TABLET PO SCH (19:23)
[2019-10-10] MEDS: ATORVASTATIN CALCIUM 40 MG TABLET PO SCH (19:24)
[2019-10-10] MEDS: TAMSULOSIN HCL 0.4 MG CAP.ER.24H PO SCH (19:24)
[2019-10-10 20:00] VITALS: BP 98/56
[2019-10-11] VITALS (7 sets, daily range): BP systolic 97–114; BP diastolic 47–73
[2019-10-11] MEDS: INSULIN HUMULIN R 100 UNIT/ML 3ML SQ SCH ×4 (05:46→22:27)
[2019-10-11] MEDS: METFORMIN HCL 500 MG TABLET PO SCH ×2 (05:47→16:59)
[2019-10-11 05:59] LABS: EOSINOPHILS % (AUTO) 2.4 % (0.0-8.0); HEMATOCRIT 27.9 % (42-54); LYMPHOCYTES % (AUTO) 23.3 % (21.0-51.0); MEAN CORPUSCULAR HEMOGLOBIN 26.9 pg (27.0-33.0); MEAN CORPUSCULAR HGB CONC 31.9 g/dL (32.0-36.0); MEAN CORPUSCULAR VOLUME 84.3 fL (79-99); MONOCYTES % (AUTO) 8.4 % (3.0-13.0); NEUTROPHILS % (AUTO) 64.5 % (40.0-77.0); PLATELET COUNT (AUTO) 401 K/uL (130-400); RED BLOOD CELL COUNT(AUTO) 3.31 MIL/uL (4.50-6.20); RED CELL DISTRIBUTION WIDTH 14.6 % (11.0-15.5); WHITE BLOOD COUNT (AUTO) 7.9 K/uL (4.8-10.8)
[2019-10-11] MEDS: LOSARTAN 50 MG TABLET PO SCH (09:00)
[2019-10-11] MEDS: FISH OIL 1000 MG/CAP PO SCH (09:38)
[2019-10-11] MEDS: CARVEDILOL 12.5 MG TABLET PO SCH (09:38)
[2019-10-11] MEDS: LEVETIRACETAM 500 MG TABLET PO SCH ×2 (09:39→22:21)
[2019-10-11] MEDS: FUROSEMIDE 20 MG TABLET PO SCH (09:40)
[2019-10-11] MEDS: MULTIVITAMIN TABLET PO SCH (09:41)
[2019-10-11] MEDS: LORATADINE 10 MG TABLET PO SCH (09:41)
[2019-10-11] MEDS: PANTOPRAZOLE SODIUM 40 MG TABLET.DR PO SCH (09:42)
[2019-10-11] MEDS: FINASTERIDE 5 MG TABLET PO SCH (09:43)
[2019-10-11] MEDS: SERTRALINE HCL 50 MG TABLET PO SCH (09:45)
--- NOTE | 2019-10-11 17:15 | NUR ---
DINNER pt states I am not hungry ,assisted him up in bed and set up tray for patient daughter called at the time I was in room ,assisted him with phone pt seemed less anxious after phone call
--- NOTE | 2019-10-11 18:35 | NUR ---
cm note per Michaelle at [facility], trying to find bed at [facility], unable to accomadate at [facility] Per Michaelle she asked dtbaltazar Chen if OK to use [facility], and she said yes, however no beds yet at either. still pending approval.
--- NOTE | 2019-10-11 20:00 | NUR ---
PM Assessment Received pt resting comfortably in bed watching TV, pleasantly conversant. Routine assessment, plan of care discuss, when verified that he will be going to a SNF, agreed. Pt reminded with a Medrano catheter in place, not to pull. Pt currently denies discomfort.
[2019-10-11] MEDS: CARVEDILOL 6.25 MG TABLET PO SCH (21:00)
[2019-10-11] MEDS: TAMSULOSIN HCL 0.4 MG CAP.ER.24H PO SCH (22:21)
[2019-10-11] MEDS: ATORVASTATIN CALCIUM 40 MG TABLET PO SCH (22:21)
[2019-10-12 03:25] VITALS: BP 95/56
[2019-10-12 05:23] LABS: EOSINOPHILS % (AUTO) 1.1 % (0.0-8.0); HEMATOCRIT 28.7 % (42-54); LYMPHOCYTES % (AUTO) 22.1 % (21.0-51.0); MEAN CORPUSCULAR HEMOGLOBIN 27.2 pg (27.0-33.0); MEAN CORPUSCULAR HGB CONC 32.8 g/dL (32.0-36.0); MEAN CORPUSCULAR VOLUME 83.2 fL (79-99); MONOCYTES % (AUTO) 8.7 % (3.0-13.0); NEUTROPHILS % (AUTO) 66.7 % (40.0-77.0); PLATELET COUNT (AUTO) 435 K/uL (130-400); RED BLOOD CELL COUNT(AUTO) 3.45 MIL/uL (4.50-6.20); RED CELL DISTRIBUTION WIDTH 14.4 % (11.0-15.5); WHITE BLOOD COUNT (AUTO) 7.3 K/uL (4.8-10.8)
[2019-10-12] MEDS: INSULIN HUMULIN R 100 UNIT/ML 3ML SQ SCH ×4 (05:27→20:56)
[2019-10-12 07:14] VITALS: BP 124/65
[2019-10-12] MEDS: METFORMIN HCL 500 MG TABLET PO SCH ×2 (10:11→17:10)
[2019-10-12] MEDS: CARVEDILOL 12.5 MG TABLET PO SCH (10:12)
[2019-10-12] MEDS: LOSARTAN 50 MG TABLET PO SCH (10:13)
[2019-10-12] MEDS: FISH OIL 1000 MG/CAP PO SCH (10:13)
[2019-10-12] MEDS: FUROSEMIDE 20 MG TABLET PO SCH (10:14)
[2019-10-12] MEDS: LEVETIRACETAM 500 MG TABLET PO SCH ×2 (10:14→20:53)
[2019-10-12] MEDS: LORATADINE 10 MG TABLET PO SCH (10:15)
[2019-10-12] MEDS: FINASTERIDE 5 MG TABLET PO SCH (10:15)
[2019-10-12] MEDS: PANTOPRAZOLE SODIUM 40 MG TABLET.DR PO SCH (10:15)
[2019-10-12] MEDS: MULTIVITAMIN TABLET PO SCH (10:15)
[2019-10-12] MEDS: SERTRALINE HCL 50 MG TABLET PO SCH (10:16)
[2019-10-12 10:34] VITALS: BP 143/84
[2019-10-12 15:50] VITALS: BP 98/60
[2019-10-12 19:56] VITALS: BP 97/64
[2019-10-12] MEDS: TAMSULOSIN HCL 0.4 MG CAP.ER.24H PO SCH (20:53)
[2019-10-12] MEDS: ATORVASTATIN CALCIUM 40 MG TABLET PO SCH (20:53)
[2019-10-12] MEDS: CARVEDILOL 6.25 MG TABLET PO SCH (20:54)
[2019-10-13] VITALS (7 sets, daily range): BP systolic 98–127; BP diastolic 46–76
[2019-10-13] MEDS: INSULIN HUMULIN R 100 UNIT/ML 3ML SQ SCH ×4 (06:00→20:24)
[2019-10-13] MEDS: METFORMIN HCL 500 MG TABLET PO SCH ×2 (09:42→16:32)
[2019-10-13] MEDS: LEVETIRACETAM 500 MG TABLET PO SCH ×2 (09:53→20:54)
[2019-10-13] MEDS: FUROSEMIDE 20 MG TABLET PO SCH (09:53)
[2019-10-13] MEDS: FISH OIL 1000 MG/CAP PO SCH (09:53)
[2019-10-13] MEDS: LORATADINE 10 MG TABLET PO SCH (09:54)
[2019-10-13] MEDS: FINASTERIDE 5 MG TABLET PO SCH (09:54)
[2019-10-13] MEDS: PANTOPRAZOLE SODIUM 40 MG TABLET.DR PO SCH (09:54)
[2019-10-13] MEDS: MULTIVITAMIN TABLET PO SCH (09:54)
[2019-10-13] MEDS: SERTRALINE HCL 50 MG TABLET PO SCH (09:55)
[2019-10-13] MEDS: LOSARTAN 50 MG TABLET PO SCH (09:59)
[2019-10-13] MEDS: CARVEDILOL 12.5 MG TABLET PO SCH (10:00)
--- NOTE | 2019-10-13 18:34 | NUR ---
cm note - per Michaelle at [facility], now trying to find bed at [facility],unable to accomadate at [facility] Per Michaelle she asked dtbaltazar Chen if OK to use R, and she said yes, however no beds yet at either. still pending approval.
[2019-10-13] MEDS: ATORVASTATIN CALCIUM 40 MG TABLET PO SCH (20:53)
[2019-10-13] MEDS: CARVEDILOL 6.25 MG TABLET PO SCH (20:54)
[2019-10-13] MEDS: TAMSULOSIN HCL 0.4 MG CAP.ER.24H PO SCH (20:54)
[2019-10-14 03:51] VITALS: BP 106/59
[2019-10-14] MEDS: INSULIN HUMULIN R 100 UNIT/ML 3ML SQ SCH ×4 (05:39→20:51)
[2019-10-14 08:00] VITALS: BP 93/56
--- NOTE | 2019-10-14 08:00 | NUR ---
PER REPORT. PT DOES NOT HAVE A PIV, AND THAT THE DR. ARE AWARE OF STATUS.
[2019-10-14] MEDS: FISH OIL 1000 MG/CAP PO SCH (09:06)
[2019-10-14] MEDS: CARVEDILOL 12.5 MG TABLET PO SCH (09:07)
[2019-10-14] MEDS: LOSARTAN 50 MG TABLET PO SCH (09:07)
[2019-10-14] MEDS: PANTOPRAZOLE SODIUM 40 MG TABLET.DR PO SCH (09:08)
[2019-10-14] MEDS: FUROSEMIDE 20 MG TABLET PO SCH (09:08)
[2019-10-14] MEDS: SERTRALINE HCL 50 MG TABLET PO SCH (09:08)
[2019-10-14] MEDS: MULTIVITAMIN TABLET PO SCH (09:08)
[2019-10-14] MEDS: LORATADINE 10 MG TABLET PO SCH (09:08)
[2019-10-14] MEDS: FINASTERIDE 5 MG TABLET PO SCH (09:08)
[2019-10-14] MEDS: LEVETIRACETAM 500 MG TABLET PO SCH ×2 (09:09→21:10)
[2019-10-14] MEDS: METFORMIN HCL 500 MG TABLET PO SCH ×2 (09:13→17:04)
[2019-10-14 11:43] VITALS: BP 87/54
--- NOTE | 2019-10-14 14:44 | NUR ---
CM Note: [facility] pending acceptance CM spoke to Michaelle w/WNR, pt pending approval and acceptance for W[facility], [facility] didn't have a bed available for pt due to covid bed reshuffling. Received updated PASRR. EMS arranged for today in case, primary nurse aware. CM to cont to follow up.
[2019-10-14 16:00] VITALS: BP 97/53
--- NOTE | 2019-10-14 17:31 | NUR ---
CM Note: [facility] cancelled, [facility] pending acceptance CM spoke to Michaelle w/WNR covering for [facility] as well. As per Michaelle no bed available diverting patient to [facility], family made aware and is in agreeable. Pending acceptance for [facility]. Updated PASRR sent and received. Primary nurse aware. CM to cont to follow up.
--- NOTE | 2019-10-14 18:10 | NUR ---
COVID NARE SWABS DONE ,AND SEND TO LAB
[2019-10-14 19:00] VITALS: BP 106/56
[2019-10-14] MEDS: TAMSULOSIN HCL 0.4 MG CAP.ER.24H PO SCH (21:10)
[2019-10-14] MEDS: ATORVASTATIN CALCIUM 40 MG TABLET PO SCH (21:10)
[2019-10-14] MEDS: CARVEDILOL 6.25 MG TABLET PO SCH (21:11)
[2019-10-15] VITALS: BP 110/61
[2019-10-15 04:00] VITALS: BP 114/72
[2019-10-15] MEDS: INSULIN HUMULIN R 100 UNIT/ML 3ML SQ SCH ×3 (07:18→16:30)
[2019-10-15 08:09] VITALS: BP 118/50
[2019-10-15] MEDS: METFORMIN HCL 500 MG TABLET PO SCH ×2 (08:35→17:27)
[2019-10-15] MEDS: FISH OIL 1000 MG/CAP PO SCH (08:35)
[2019-10-15] MEDS: LOSARTAN 50 MG TABLET PO SCH (08:35)
[2019-10-15] MEDS: LEVETIRACETAM 500 MG TABLET PO SCH (08:35)
[2019-10-15] MEDS: SERTRALINE HCL 50 MG TABLET PO SCH (08:35)
[2019-10-15] MEDS: MULTIVITAMIN TABLET PO SCH (08:35)
[2019-10-15] MEDS: CARVEDILOL 12.5 MG TABLET PO SCH (08:36)
[2019-10-15] MEDS: FINASTERIDE 5 MG TABLET PO SCH (08:36)
[2019-10-15] MEDS: LORATADINE 10 MG TABLET PO SCH (08:36)
[2019-10-15] MEDS: FUROSEMIDE 20 MG TABLET PO SCH (08:36)
[2019-10-15] MEDS: PANTOPRAZOLE SODIUM 40 MG TABLET.DR PO SCH (08:36)
--- NOTE | 2019-10-15 11:01 | NUR ---
CM Note: [facility] acceptance CM spoke to Michaelle, pt has acceptance, just pending covid result prior to admission. EMS arranged for today in case covid result comes out, primary nurse to call [facility] once pt ready to DC. Primary nurse aware. CM to cont to follow up.
[2019-10-15 12:25] VITALS: BP 106/51
--- NOTE | 2019-10-15 15:56 | NUR ---
CM Note: [facility] acceptance CM spoke to Michaelle pt has acceptance, ok for pt to transfer today via EMS pending covid result. Requested to have covid result be sent once available. EMS arranged and faxed, primary nurse to call [facility] once pt ready to DC. Primary nurse aware. CM to cont to follow up.
[2019-10-15 16:03] VITALS: BP 110/65
--- NOTE | 2019-10-15 17:17 | NUR ---
SPOKE WITH STAFF , NURSE, DARVIN BOYD LVN FROM [facility] REGARDING . REPORT. REVIEW CARE.
--- NOTE | 2019-10-15 18:10 | NUR ---
EMS HERE TO TAKE , PT TO [facility] . PT DID NOT HAVE A IV , BUT WAS DISCHARGE WITH A THOMAS CATHETER PER DR. CEVALLOS ORDERS NOT TO BE REMOVED AND WILL FOLLOW IN HIS OFFICE IN 1-2 WEEKS . APPT TO [facility] WERE REVIEW WITH .. STAFF NURSE , DARVIN BOYD LVN. ALSO A APPT TO SET UP WITH THE [facility]
== END 2019-10-15 18:39 | DRG 101 ==
LOC: EDH 15:47 → OBSVTOIN 19:25 → EDHIP 19:25 → 3BH 20:41 → 3CH 10-03 15:26
PROVIDERS: ADMIT Internal Medicine; ATTEND Internal Medicine
PROC: 4A00X4Z Measurement of Central Nervous Electrical Activity, External Approach (ICD-10-PCS; principal; 2019-10-07)
DX: R56.9 Unspecified convulsions (principal); E11.9 Type 2 diabetes mellitus without complications; F02.80 Dementia in other diseases classified elsewhere, unspecified severity, without behavioral disturbance, psychotic disturbance, mood disturbance, and anxiety; I10 Essential (primary) hypertension; Z20.828 Contact with and (suspected) exposure to other viral communicable diseases; R31.0 Gross hematuria; G30.9 Alzheimer's disease, unspecified; N40.0 Benign prostatic hyperplasia without lower urinary tract symptoms; E78.5 Hyperlipidemia, unspecified; I35.0 Nonrheumatic aortic (valve) stenosis; I25.10 Atherosclerotic heart disease of native coronary artery without angina pectoris; Z95.1 Presence of aortocoronary bypass graft; Z87.891 Personal history of nicotine dependence; Z79.02 Long term (current) use of antithrombotics/antiplatelets; Z79.4 Long term (current) use of insulin; Z79.82 Long term (current) use of aspirin; Z79.899 Other long term (current) drug therapy; Z87.440 Personal history of urinary (tract) infections; Z79.84 Long term (current) use of oral hypoglycemic drugs; Z90.79 Acquired absence of other genital organ(s)
CPT/HCPCS: 36415; 36600; 70450; 70551; 71045; 80048; 80053; 80305; 81001; 82550; 82803; 82948; 83735; 84100; 84484; 85025; 85027; 85610; 85730; 87040; 87088; 93005; 95816; 97039; A4344; G0378; J0696; J1815; J1953; J7030; U0003

== ENCOUNTER 2019-11-08 12:25 | Observation (INO) | payer OTHER ==
[~2019-11-08] VITALS: Ht 162.6 cm; Wt 89.4 kg
[~2019-11-08 12:25] MED LIST changes: -AEC81 PO; +CEFU500T67 PO; -CLOP75TA14 PO; -DONE5TAB26 PO; +MULT1CAP32 PO; +OMEG-148 PO
[2019-11-08 13:01] LABS: BASOPHILS % (AUTO) 0.4 % (0.0-5.0); EOSINOPHILS % (AUTO) 1.6 % (0.0-8.0); HEMATOCRIT 25.3 % (42-54); LYMPHOCYTES % (AUTO) 6.7 % (21.0-51.0); MEAN CORPUSCULAR HEMOGLOBIN 24.5 pg (27.0-33.0); MEAN CORPUSCULAR HGB CONC 31.6 g/dL (32.0-36.0); MEAN CORPUSCULAR VOLUME 77.6 fL (79-99); MONOCYTES % (AUTO) 6.8 % (3.0-13.0); NEUTROPHILS % (AUTO) 84.2 % (40.0-77.0); PLATELET COUNT (AUTO) 368 K/uL (130-400); RED BLOOD CELL COUNT(AUTO) 3.26 MIL/uL (4.50-6.20); RED CELL DISTRIBUTION WIDTH 15.8 % (11.0-15.5); WHITE BLOOD COUNT (AUTO) 10.1 K/uL (4.8-10.8)
[2019-11-08 13:24] LABS: CREATININE 1.1 mg/dL (0.5-1.5); INR 1.14 (0.85-1.15); PARTIAL THROMBOPLASTIN TIME 34.3 SEC (26.3-35.5); POTASSIUM 3.9 mmol/L (3.5-5.1); PROTHROMBIN TIME 12.3 SEC (9.6-11.6)
[2019-11-08 13:35] LABS: ALBUMIN 2.9 g/dL (3.5-5.0); TROPONIN I 0.07 ng/mL (0.00-0.06)
[2019-11-08] MEDS ORDERED: MEROPENEM 1 GM VIAL ONE (13:44)
[2019-11-08] MEDS ORDERED: SODIUM CHLORIDE 0.9% 100 ML IV ONE (13:45)
[2019-11-08] MEDS ORDERED: SODIUM CHLORIDE 0.9% 500ML 500 ML IV ONE (13:45)
[2019-11-08 14:26] LABS: APPEARANCE,URINE Turbid (CLEAR); BILIRUBIN,URINE Negative (NEGATIVE); COLOR,URINE Yellow (YELLOW); GLUCOSE, URINE (UA) TRACE mg/dL (NEGATIVE); KETONES,URINE Negative (NEGATIVE); LEUKOCYTE ESTERASE ,URINE Large (NEGATIVE); NITRATE,URINE Positive (NEGATIVE); OCCULT BLOOD,URINE Moderate (NEGATIVE); PROTEIN,URINE POS 2+ mg/dL (NEGATIVE)
[2019-11-08 14:37] LABS: RBC,URINE None Seen /HPF (0-1); WBC,URINE TNTC /HPF (0-1)
[2019-11-08 14:38] LABS: BACTERIA,URINE Few /HPF (None Seen); SQUAMOUS EPITHELIAL CELL,UR 0-2 /HPF (0-2)
[2019-11-08] MEDS ORDERED: VANCOMYCIN 1.25 GM in SODIUM CHLORIDE 0.9% 250 ML IV SCH (15:15)
[2019-11-08] MEDS ORDERED: LEVE500T19 PO (17:54)
[2019-11-08] MEDS ORDERED: LORA10TA7 PO (17:54)
[2019-11-08] MEDS ORDERED: MEROPENEM 1 GM VIAL IVP SCH (18:00)
[2019-11-08] MEDS ORDERED: VANCOMYCIN PROTOCOL PER PHARMACY IV SCH (18:00)
--- NOTE | 2019-11-08 18:00 | NUR ---
ADMISSION RECEIVED PT FROM ER, A&O TO NAME ONLY, AMBULATING FROM GURNEY TO BED, GAIT SLOW AND UNSTEADY WITH 2 PERSON ASSIST. PT DOES NOT APPEAR TO BE IN ANY DISTRESS. RT UPPER AND LOWER EXTREMITY FLACCID AND WEAK UPPER AND LOWER EXTREMITY. PT IS ABLE TO SWALLOW FOODS AND FLUIDS WITH NO THROAT CLEARING OR COUGH. CALL LIGHT WITHIN REACH.
[2019-11-08] MEDS ORDERED: PHARMACY COMMUNICATION MISC SCH ×2 (18:15→18:30)
[2019-11-08 20:00] VITALS: BP 104/52
[2019-11-08] MEDS: MEROPENEM 1 GM VIAL IVP SCH (22:11)
[2019-11-08] MEDS: LACTATED RINGERS 1000ML 1,000 ML IV SCH (22:17)
[2019-11-08 23:51] VITALS: BP 112/56
[2019-11-09 03:38] VITALS: BP 138/50
[2019-11-09] MEDS: LACTATED RINGERS 1000ML 1,000 ML IV SCH ×2 (04:00→17:09)
[2019-11-09 05:19] LABS: BASOPHILS % (AUTO) 0.5 % (0.0-5.0); HEMATOCRIT 24.5 % (42-54); LYMPHOCYTES % (AUTO) 10.4 % (21.0-51.0); MEAN CORPUSCULAR HEMOGLOBIN 24.1 pg (27.0-33.0); MEAN CORPUSCULAR HGB CONC 30.6 g/dL (32.0-36.0); MEAN CORPUSCULAR VOLUME 78.8 fL (79-99); MONOCYTES % (AUTO) 6.7 % (3.0-13.0); PLATELET COUNT (AUTO) 371 K/uL (130-400); RED BLOOD CELL COUNT(AUTO) 3.11 MIL/uL (4.50-6.20); RED CELL DISTRIBUTION WIDTH 15.8 % (11.0-15.5); WHITE BLOOD COUNT (AUTO) 9.3 K/uL (4.8-10.8)
[2019-11-09 05:44] LABS: B-TYPE NATRIURETIC PEPTIDE 668 pg/mL (0-100)
[2019-11-09 05:50] LABS: ALBUMIN 2.7 g/dL (3.5-5.0); BILIRUBIN,DIRECT 0.3 mg/dL (0.0-0.3); CREATININE 0.9 mg/dL (0.5-1.5); MAGNESIUM 1.9 mg/dL (1.80-2.40); PHOSPHORUS 2.9 mg/dL (2.5-4.9); POTASSIUM 4.3 mmol/L (3.5-5.1); TOTAL PROTEIN, SERUM 6.5 g/dL (6.0-8.3)
[2019-11-09 06:38] LABS: INR 1.09 (0.85-1.15); PARTIAL THROMBOPLASTIN TIME 36.2 SEC (26.3-35.5); PROTHROMBIN TIME 11.7 SEC (9.6-11.6)
[2019-11-09] MEDS: MEROPENEM 1 GM VIAL IVP SCH ×3 (06:50→20:39)
[2019-11-09] MEDS ORDERED: PHARMACY COMMUNICATION MISC SCH (07:30)
[2019-11-09 07:49] VITALS: BP 133/65
--- NOTE | 2019-11-09 08:00 | NUR ---
ASSESSMENT ENCOUNTERED PT IN HIGH SEYMOUR'S POSITION, A&O TO NAME ONLY, WITH FLAT AFFECT, CALM COOPERATIVE AND DOES NOT APPEAR TO BE IN ANY DISTRESS. PT IS ABLE TO TOLERATE FOODS, FLUIDS AND MEDICATION WITH NO THROAT CLEARING OR COUGH. PT DENIES PAIN, SOB, NAUSEA OR CHILLS. PT RESTING COMFORTABLY, CALL LIGHT WITHIN REACH.
[2019-11-09 11:35] VITALS: BP 128/66
--- NOTE | 2019-11-09 14:58 | NUR ---
ASSUMED CARE OF PATIENT RESTING QUIETLY IN ROOM, LR RUNING PER PIV RFA.
[2019-11-09] MEDS ORDERED: VANCOMYCIN 1GM+NS 250ML 250 ML IV SCH (15:00)
--- NOTE | 2019-11-09 15:03 | NUR ---
INITIAL SW spoke to patient's daughter, April Crolwey. Patient lives with spouse, Beatriz Crowley. He has no home services but daughter states that patient will soon receive services by [facility] through his insurance. He is a DNR as per daughter. Patient was discharged from [facility] about two weeks ago and had been doing fine at home. DME: wheelchair, shower bench, BPM, glucometer (uses insulin). Patient needs help with ADL's and doesn't drive. Family assists as needed. PCP is Dr. Jr Raygoza. Pharmacy is [facility] located on [address]. No safety concerns voiced by family for patient to return home. DCP is home. Addendum: 11/09/19 at 1506 by ANNIA SPANN SS Amended: Links added.
[2019-11-09 16:31] VITALS: BP 155/81
[2019-11-09] MEDS ORDERED: METFORMIN HCL 500 MG TABLET PO SCH (17:00)
[2019-11-09] MEDS: ATORVASTATIN CALCIUM 40 MG TABLET PO SCH (20:40)
[2019-11-09] MEDS: LEVETIRACETAM 500 MG TABLET PO SCH (20:40)
[2019-11-09] MEDS: CARVEDILOL 6.25 MG TABLET PO SCH (20:40)
[2019-11-09] MEDS: TAMSULOSIN HCL 0.4 MG CAP.ER.24H PO SCH (20:40)
[2019-11-09] MEDS: SERTRALINE HCL 50 MG TABLET PO SCH (20:40)
[2019-11-09 20:46] VITALS: BP 138/68
[2019-11-09 23:54] VITALS: BP 142/63
[2019-11-10 04:12] VITALS: BP 139/61
[2019-11-10] MEDS: LACTATED RINGERS 1000ML 1,000 ML IV SCH (05:01)
[2019-11-10] MEDS: MEROPENEM 1 GM VIAL IVP SCH ×3 (05:19→21:11)
[2019-11-10 06:05] LABS: BASOPHILS % (AUTO) 0.3 % (0.0-5.0); HEMATOCRIT 25.4 % (42-54); LYMPHOCYTES % (AUTO) 13.3 % (21.0-51.0); MEAN CORPUSCULAR HEMOGLOBIN 23.4 pg (27.0-33.0); MEAN CORPUSCULAR HGB CONC 29.9 g/dL (32.0-36.0); MEAN CORPUSCULAR VOLUME 78.2 fL (79-99); MONOCYTES % (AUTO) 5.7 % (3.0-13.0); NEUTROPHILS % (AUTO) 71.2 % (40.0-77.0); PLATELET COUNT (AUTO) 392 K/uL (130-400); RED BLOOD CELL COUNT(AUTO) 3.25 MIL/uL (4.50-6.20); RED CELL DISTRIBUTION WIDTH 15.9 % (11.0-15.5); WHITE BLOOD COUNT (AUTO) 8.6 K/uL (4.8-10.8)
[2019-11-10 06:13] LABS: ALBUMIN 2.5 g/dL (3.5-5.0); BILIRUBIN,TOTAL 0.9 mg/dL (0.2-1.0); CREATININE 0.9 mg/dL (0.5-1.5); MAGNESIUM 1.4 mg/dL (1.80-2.40); PHOSPHORUS 2.4 mg/dL (2.5-4.9); POTASSIUM 4.1 mmol/L (3.5-5.1); TOTAL PROTEIN, SERUM 6.2 g/dL (6.0-8.3)
[2019-11-10] MEDS: FISH OIL 1000 MG/CAP PO SCH (08:46)
[2019-11-10] MEDS: LEVETIRACETAM 500 MG TABLET PO SCH ×2 (08:47→21:12)
[2019-11-10] MEDS: FUROSEMIDE 20 MG TABLET PO SCH (08:47)
[2019-11-10] MEDS: LOSARTAN 50 MG TABLET PO SCH (08:47)
[2019-11-10] MEDS: MULTIVITAMIN TABLET PO SCH (08:48)
[2019-11-10] MEDS: LORATADINE 10 MG TABLET PO SCH (08:48)
[2019-11-10 08:49] VITALS: BP 114/66
[2019-11-10] MEDS: FINASTERIDE 5 MG TABLET PO SCH (08:50)
[2019-11-10] MEDS: CARVEDILOL 12.5 MG TABLET PO SCH (08:52)
[2019-11-10] MEDS ORDERED: LORATADINE 10 MG TABLET PO SCH (09:00)
[2019-11-10 11:52] VITALS: BP 140/68
[2019-11-10 19:25] VITALS: BP 143/62
[2019-11-10 20:33] VITALS: BP 119/93
[2019-11-10] MEDS: TAMSULOSIN HCL 0.4 MG CAP.ER.24H PO SCH (21:11)
[2019-11-10] MEDS: SERTRALINE HCL 50 MG TABLET PO SCH (21:12)
[2019-11-10] MEDS: ATORVASTATIN CALCIUM 40 MG TABLET PO SCH (21:12)
[2019-11-10] MEDS: CARVEDILOL 6.25 MG TABLET PO SCH (21:13)
[2019-11-10 23:46] VITALS: BP 137/85
[2019-11-11 03:30] VITALS: BP 133/59
[2019-11-11] MEDS: MEROPENEM 1 GM VIAL IVP SCH ×2 (05:29→12:57)
[2019-11-11 08:00] VITALS: BP 143/75
[2019-11-11] MEDS ORDERED: MAGNESIUM 2GM PREMIX 50ML 50 ML IV SCH (08:15)
[2019-11-11] MEDS: FISH OIL 1000 MG/CAP PO SCH (09:58)
[2019-11-11] MEDS: LEVETIRACETAM 500 MG TABLET PO SCH (09:58)
[2019-11-11] MEDS: LOSARTAN 50 MG TABLET PO SCH (09:59)
[2019-11-11] MEDS: MULTIVITAMIN TABLET PO SCH (09:59)
[2019-11-11] MEDS: CARVEDILOL 12.5 MG TABLET PO SCH (09:59)
[2019-11-11] MEDS: FUROSEMIDE 20 MG TABLET PO SCH (10:00)
[2019-11-11] MEDS: FINASTERIDE 5 MG TABLET PO SCH (10:00)
[2019-11-11] MEDS: LORATADINE 10 MG TABLET PO SCH (10:00)
[2019-11-11 10:23] LABS: ALBUMIN 2.4 g/dL (3.5-5.0); BILIRUBIN,TOTAL 0.6 mg/dL (0.2-1.0); CREATININE 0.8 mg/dL (0.5-1.5); MAGNESIUM 1.5 mg/dL (1.80-2.40); PHOSPHORUS 2.7 mg/dL (2.5-4.9); POTASSIUM 3.4 mmol/L (3.5-5.1); TOTAL PROTEIN, SERUM 5.8 g/dL (6.0-8.3)
[2019-11-11] MEDS ORDERED: LIDOCAINE HCL-MPF 1% 2ML VIAL IV PRN (11:45)
[2019-11-11] MEDS ORDERED: POTASSIUM CHLORIDE 20MEQ/100ML 100 ML IV PRN (11:45)
[2019-11-11] MEDS ORDERED: POTASSIUM CHLORIDE 10% ELIXIR 20 MEQ/15 ML UDCUP PO PRN (11:45)
[2019-11-11 12:00] VITALS: BP 135/72
[2019-11-11] MEDS: POTASSIUM CHLORIDE 20 MEQ ERTAB PO PRN ×3 (12:58→17:13)
[2019-11-11] MEDS ORDERED: MACR100 PO (14:06)
[2019-11-11 16:00] VITALS: BP 142/73
[2019-11-11 19:16] LABS: MAGNESIUM 1.9 mg/dL (1.80-2.40); POTASSIUM 4.1 mmol/L (3.5-5.1)
[2019-11-11 20:17] VITALS: BP 142/72
== END 2019-11-11 20:50 | disposition home or self-care (01) ==
LOC: EDH 12:25 → EDHIP 15:35 → 4DH 18:15
PROVIDERS: ADMIT Internal Medicine Critical Care Medicine; ATTEND Internal Medicine Critical Care Medicine
DX: N39.0 Urinary tract infection, site not specified (principal); Z20.828 Contact with and (suspected) exposure to other viral communicable diseases; J15.0 Pneumonia due to Klebsiella pneumoniae; N40.0 Benign prostatic hyperplasia without lower urinary tract symptoms; E11.9 Type 2 diabetes mellitus without complications; E78.5 Hyperlipidemia, unspecified; G30.9 Alzheimer's disease, unspecified; F02.80 Dementia in other diseases classified elsewhere, unspecified severity, without behavioral disturbance, psychotic disturbance, mood disturbance, and anxiety; E83.42 Hypomagnesemia; I25.10 Atherosclerotic heart disease of native coronary artery without angina pectoris; Z79.4 Long term (current) use of insulin; Z79.899 Other long term (current) drug therapy; Z87.891 Personal history of nicotine dependence; Z95.1 Presence of aortocoronary bypass graft; Z87.440 Personal history of urinary (tract) infections
CPT/HCPCS: 36415 ×4; 70450; 71045 ×2; 80053 ×4; 80076; 81001; 82550; 82728; 82948 ×13; 83605 ×2; 83735 ×4; 83874; 83880; 84100 ×3; 84132; 84145; 84484; 85025 ×3; 85378; 85610 ×2; 85730 ×2; 86900; 86901; 87040 ×2; 87077; 87088; 87186; 87426; 93005; 96361 ×3; 96365; 96366 ×2; 96367; 96375; 96376 ×3; 99285; G0378 ×10; J2185 ×10; J3370 ×2; J3475; J7040; J7050; J7120 ×3; U0003

== ENCOUNTER 2020-02-03 19:44 | Emergency (ER) | payer OTHER ==
[~2020-02-03 19:44] MED LIST changes: -CEFU500T67 PO; +LEVE500T19 PO; +MACR100 PO; -NITR100C PO
== END 2020-02-03 22:15 | disposition home or self-care (01) ==
LOC: EDH 19:44
DX: Z20.828 Contact with and (suspected) exposure to other viral communicable diseases (principal); I11.0 Hypertensive heart disease with heart failure; I50.9 Heart failure, unspecified; E11.9 Type 2 diabetes mellitus without complications; E78.5 Hyperlipidemia, unspecified; G30.9 Alzheimer's disease, unspecified; F02.80 Dementia in other diseases classified elsewhere, unspecified severity, without behavioral disturbance, psychotic disturbance, mood disturbance, and anxiety; Z95.1 Presence of aortocoronary bypass graft
CPT/HCPCS: 87426

== ENCOUNTER 2020-08-09 20:50 | Emergency (ER) | payer MEDICARE, OTHER ==
[~2020-08-09 20:50] MED LIST changes: +SERT-438 PO; -SERT25TA5 PO
[2020-08-09] MEDS ORDERED: SODIUM CHLORIDE 0.9% 1000ML 1,000 ML IV ONE (20:51)
[2020-08-09 21:20] LABS: BASOPHILS % (AUTO) 0.5 % (0.0-5.0); HEMATOCRIT 31.8 % (42-54); LYMPHOCYTES % (AUTO) 9.7 % (21.0-51.0); MEAN CORPUSCULAR HEMOGLOBIN 20.2 pg (27.0-33.0); MEAN CORPUSCULAR HGB CONC 28.9 g/dL (32.0-36.0); MEAN CORPUSCULAR VOLUME 69.7 fL (79-99); MONOCYTES % (AUTO) 6.9 % (3.0-13.0); NEUTROPHILS % (AUTO) 78.7 % (40.0-77.0); PLATELET COUNT (AUTO) 398 K/uL (130-400); RED BLOOD CELL COUNT(AUTO) 4.56 MIL/uL (4.50-6.20); RED CELL DISTRIBUTION WIDTH 18.9 % (11.0-15.5); WHITE BLOOD COUNT (AUTO) 8.4 K/uL (4.8-10.8)
[2020-08-09 21:21] LABS: APPEARANCE,URINE CLOUDY (CLEAR); BILIRUBIN,URINE NEGATIVE (NEGATIVE); COLOR,URINE YELLOW (YELLOW); GLUCOSE, URINE (UA) 100 mg/dL (NEGATIVE); KETONES,URINE 5 mg/dL (NEGATIVE); LEUKOCYTE ESTERASE ,URINE MODERATE (NEGATIVE); NITRATE,URINE POSITIVE (NEGATIVE); OCCULT BLOOD,URINE SMALL (NEGATIVE); PH,URINE 5.5 (5.0-8.0); PROTEIN,URINE TRACE mg/dL (NEGATIVE); UROBILINOGEN,URINE 0.2 mg/dL (0.2-1.0)
[2020-08-09 21:28] LABS: CREATININE 1.1 mg/dL (0.5-1.5); POTASSIUM 4.1 mmol/L (3.5-5.1)
[2020-08-09 21:29] LABS: BACTERIA,URINE Few /HPF (None Seen); WBC,URINE 26-50 /HPF (0-1)
[2020-08-09 21:31] LABS: SQUAMOUS EPITHELIAL CELL,UR Few /HPF (0-2)
[2020-08-09 21:33] LABS: ALBUMIN 3.2 g/dL (3.5-5.0); BILIRUBIN,TOTAL 0.4 mg/dL (0.2-1.0); TOTAL PROTEIN, SERUM 6.9 g/dL (6.0-8.3)
[2020-08-09] MEDS ORDERED: CEFTRIAXONE SODIUM 1 GM ONE (21:50)
[2020-08-09] MEDS ORDERED: LOPERAMIDE HCL 2 MG CAP PO ONE (22:08)
== END 2020-08-10 00:58 | disposition home or self-care (01) ==
LOC: EDH 20:50
DX: N39.0 Urinary tract infection, site not specified (principal); A09 Infectious gastroenteritis and colitis, unspecified; I11.0 Hypertensive heart disease with heart failure; I50.9 Heart failure, unspecified; E11.9 Type 2 diabetes mellitus without complications; E78.5 Hyperlipidemia, unspecified; G30.9 Alzheimer's disease, unspecified; F02.80 Dementia in other diseases classified elsewhere, unspecified severity, without behavioral disturbance, psychotic disturbance, mood disturbance, and anxiety; Z79.899 Other long term (current) drug therapy
CPT/HCPCS: 36415; 80053; 81001; 85025; 87077; 87088; 87186; 96361; 96365; 96366; 99284; J0696; J7030